=== PATIENT | female | born 1955 | race Caucasian/White ===

== ENCOUNTER → 2017-11-14 | Day surgery (SDC) | payer OTHER ==
--- NOTE | 2017-11-15 13:48 | PATH ---
Surgical Pathology Report Patient Name: LISA COVINGTON [facility]. Rec. #: [id number] /Age/Gender: 1955 (Age: 62) / F Account: [id number] Location: [facility] Taken: 11/14/2017 Received: 11/14/2017 Reported: 11/15/2017 Physicians: Yuriy Simon M.D. Specimen(s) Received A: LEFT BREAST SPECIMEN WITH CALCIFICATIONS B: LEFT BREAST SPECIMEN WITHOUT CALCIFICATIONS Clinical History Nonpalpable lesion Mammographic findings: Microcalcification, suspicious Final Diagnosis A. BREAST, LEFT, WITH CALCIFICATIONS, STEREOTACTIC BIOPSY: BENIGN BREAST TISSUE SHOWING FAT NECROSIS AND STROMAL FIBROSIS WITH ASSOCIATED CALCIFICATIONS. B. BREAST, LEFT, WITHOUT CALCIFICATIONS, STEREOTACTIC BIOPSY: BENIGN BREAST TISSUE SHOWING FAT NECROSIS AND STROMAL FIBROSIS. Electronically Signed Rohini Wheeler M.D. Gross Description A. Received in formalin labeled "left breast with calcifications," is a 0.7 x 0.5 x 0.2 cm aggregate of multiple mehta-yellow, irregular to cylindrical portions of fibroadipose tissue. The formalin is filtered and the specimen is entirely submitted in one cassette. B. Received in formalin labeled "left breast without calcifications," is a 2.4 x 1.7 x 0.3 cm aggregate of multiple mehta-yellow, irregular to cylindrical portions of fibroadipose tissue. The formalin is filtered and the specimen is entirely submitted in one cassette. Time to formalin fixation: 6 minutes Total formalin fixation time: Approximately 7 hours. 11/14/2017 saudi11/14/2017
== END | disposition home or self-care (01) ==
LOC: FMAMMOTONE 09:22
PROVIDERS: ATTEND Surgery Surgical Oncology
PROC: 0HBU3ZX Excision of Left Breast, Percutaneous Approach, Diagnostic (ICD-10-PCS; principal; 2017-11-14)
DX: N60.32 Fibrosclerosis of left breast (principal); N64.1 Fat necrosis of breast; N64.89 Other specified disorders of breast; R92.1 Mammographic calcification found on diagnostic imaging of breast
CPT/HCPCS: 19081; 87899; 88305-TC; A4648